=== PATIENT | male | born 1935 | race Caucasian/White ===

== ENCOUNTER → 2017-01-09 | Outpatient (CLI) | payer SELFPAY ==
[2017-01-09 16:32] LABS: Appearance,Urine Clear (Clear); Bilirubin,Urine Negative (Negative); Glucose,Urine (UA) Negative (Negative); Ketones,Urine Negative (Negative); Leukocyte Esterase,Urine Negative (Negative); Nitrite,Urine Negative (Negative); Protein,Urine Negative (Negative); Specific Gravity,Urine 1.011 (1.001-1.035); UA Billing (MACRO vs. MICRO) CHEM; Urobilinogen,Urine <2.0 mg/dL (<2.0)
[2017-01-09 16:42] LABS: INR 1.3 (<1.2); Partial Thromboplastin Time 33.5 sec (22.0-30.0); Prothrombin Time 12.7 sec (9.0-12.0)
[2017-01-09 16:49] LABS: ALT 50 U/L (21-72); AST 47 U/L (17-59); Alkaline Phosphatase 50 U/L (38-126); Anion Gap 9 mmol/L; Blood Urea Nitrogen 22 mg/dL (9-20); Calcium 9.6 mg/dL (8.4-10.2); Carbon Dioxide 28 mmol/L (22-30); Chloride 104 mmol/L (98-107); Glucose 95 mg/dL (74-99); Non-African American GFR(MDRD) >60 (>60 ml/min/1.73 sqM); Potassium 4.5 mmol/L (3.5-5.1); Sodium 141 mmol/L (137-145); Total Bilirubin 0.9 mg/dL (0.2-1.3); Total Protein 7.1 g/dL (6.3-8.2)
== END | disposition home or self-care (01) ==
LOC: LABPAT 15:45
PROVIDERS: ATTEND Orthopaedic Surgery
DX: Z01.812 Encounter for preprocedural laboratory examination (principal)
CPT/HCPCS: 80053; 81003; 85610; 85730; 87070

== ENCOUNTER 2017-01-17 05:56 | Inpatient (IN) | payer SELFPAY ==
[2017-01-13 12:42] VITALS: BMI 22.1
[~2017-01-17 05:56] MED LIST: ACETAMINOPHEN TAB 500 MG TAB PO ONE; DEXAMETHASONE SOD PHOSPHATE 10 MG/ML 1 ML VIAL IV ONE; HYDROmorphone 1 MG/ML 1 ML SYRINGE IVP PRN; LIDOCAINE 1% 20 ML VIAL (10MG/ML) FOR IV START INTRADERMA PRN; MELOXICAM 7.5 MG TAB PO ONE; MIDAZOLAM 2 MG/2 ML VIAL IV PRN; ONDANSETRON 4 MG/2 ML VIAL IVP ONE; SCOPOLAMINE 1.5MG/72HR PATCH TRANSDERM ONE; TRANEXAMIC ACID 1,000 MG in SODIUM CHLORIDE 0.9% 100 ML IVPB ONE; ceFAZolin 2 GM in SODIUM CHLORIDE 0.9% 100 ML IVPB ONE
[2017-01-17] MEDS ORDERED: ROPIVACAINE 246.25 MG, EPINEPHrine 0.5 MG, KETOROLAC 30 MG, cloNIDine HCL/PF 80 MCG, WA... MISCELLANE ONE ×5 (06:02)
[2017-01-17 06:23] VITALS: RESP 16
[2017-01-17] MEDS: LACTATED RINGERS 1,000 ML IV SCH (07:22)
[2017-01-17] MEDS ORDERED: PHENYLEPHRINE-0.9% NACL SYG 1 MG/10 ML SYRINGE ONE (07:23)
[2017-01-17] MEDS ORDERED: MIDAZOLAM 2 MG/2 ML VIAL ONE (07:23)
[2017-01-17] MEDS ORDERED: PROPOFOL 10 MG/ML 20 ML VIAL IV ONE (07:23)
[2017-01-17] MEDS ORDERED: fentaNYL (PF) 50 MCG/ML 2 ML AMP ONE (07:23)
[2017-01-17] MEDS ORDERED: MAGNESIUM HYDROXIDE 2,400 MG/10 ML CUP PO PRN (07:26)
[2017-01-17] MEDS ORDERED: ONDANSETRON 4 MG/2 ML VIAL IVP PRN (07:26)
[2017-01-17] MEDS ORDERED: NALOXONE 0.4 MG/ML 1 ML VIAL IV PRN (07:26)
[2017-01-17] MEDS ORDERED: HYDROmorphone 1 MG/ML 1 ML SYRINGE IVP PRN ×3 (07:26)
[2017-01-17] MEDS ORDERED: HYDROcodone/APAP 5-325MG 1 EACH TAB PO PRN (07:26)
[2017-01-17] MEDS ORDERED: hydrOXYzine PAMOATE 25 MG CAP PO PRN (07:26)
[2017-01-17] MEDS ORDERED: DIAZEPAM 5 MG TAB PO PRN (07:26)
[2017-01-17] MEDS ORDERED: ceFAZolin 3,000 MG in SODIUM CHLORIDE 0.9% IRRIGATIO 3,000 ML IRRIGATION ONE (08:23)
[2017-01-17] MEDS ORDERED: LACTATED RINGERS 1,000 ML IV ONE (08:29)
[2017-01-17] MEDS ORDERED: DABIGATRAN 75 MG CAP PO SCH (09:00)
--- NOTE | 2017-01-17 09:09 | P.OP ---
Date of Procedure: 01/17/17 Preoperative Diagnosis: Severe osteoarthritis of the right hip Postoperative Diagnosis: Severe osteoarthritis of the right hip Procedure(s) Performed: Right total hip arthroplasty with a direct anterior approach Implants: Barrera and nephew Polarstem size 8 standard with a collar Barrera [employer] Nephew R3, 3 hole acetabular shell, 54 mm Barrera [employer] Nephew reflection 6.5 mm cancellus screw, 25 mm 2 Barrera [employer] Nephew R3, XLPE 20 acetabular liner Barrera & Nephew Oxinium femoral head 36 m, -3 All components were press-fit. The articulation is ceramic on polyethylene. Anesthesia: spinal Surgeon: James Whitehead Stone Derrickman And Rigger #1: Isabela Guerra Estimated Blood Loss (ml): 750 (281 mL returned with Cell Saver) Pathology: other (Femoral head) Condition: stable Disposition: PACU Indications for Procedure: After failure of conservative treatment we discussed the surgical and nonsurgical treatment options at length. Patient wishes to proceed with a total hip arthroplasty with a direct anterior approach. Complications specific to this procedure were discussed at length, including but not limited to infection, leg length discrepancy, dislocation, and nerve injury. Patient is aware of all these complications and informed consent was obtained Operative Findings: The operative findings are consistent with severe osteoarthritis of the right hip Description of Procedure: Patient was seen and evaluated in the preoperative area, consent was reviewed, and the surgical site was marked with a skin marker. Patient was then brought to the operating room and given prophylactic antibiotics intravenously. 1 g of Tranexamic acid was also given. A spinal anesthetic was administered by the anesthesia department. The patient was then placed on the Carnegie table with the bony prominences well-padded. The hip area was then prepped and draped in usual sterile fashion. A universal timeout was then performed, which confirmed the patient's name, surgical site, ALLERGIES, and procedure being performed. Next the incision site was located at 1 cm distal and 1 cm lateral to the anterior superior iliac spine. The skin and subcutaneous tissues were sharply incised. Incision was carefully dissected down to the fascia overlying the tensor fascia elpidio muscle. This fascia was then incised in line with the incision. Next, using blunt finger dissection, the tensor fascia elpidio muscle was dissected off its investing fascia. The muscle was then carefully retracted laterally with a cobra retractor over the lateral neck of the femur. Next, the circumflex vessels were identified and cauterized using the AquaMantis device. The anterior hip capsule was then exposed. The capsule was then opened and an inverted T fashion. Cobra retractors were then placed intracapsularly. The proximal femur was then visualized. The femoral neck was then osteotomized appropriate level above the lesser trochanter. Small amount of traction was placed with the Carnegie table. A small wedge of bone was then removed from the remaining femoral head. Next, using a corkscrew femoral head was easily removed from the acetabulum. On gross visual inspection, the femoral head had complete loss of articular cartilage in multiple periarticular osteophytes. Attention was then turned to the acetabulum. the acetabulum was exposed and any remaining labrum was excised. Sequential reaming of the acetabulum was performed using fluoroscopic guidance. When the appropriate size was reached, a trial was then placed. The position and fit of the trial was checked with fluoroscopy. The trial was then removed. Then, using fluoroscopic guidance, the final implant was impacted at 20 of anteversion and 40 of abduction, and fully seated in the acetabulum. 2 screws were then placed in the acetabulum. Again fluoroscopy was used to check position of the screws. Next, the liner was then impacted, with a 20 elevated liner located in the anterior superior quadrant. Component locking was confirmed. Attention was then directed to the femur. With the aid of the Carnegie table, the femur was externally rotated to approximately 130, extended, and abducted under the opposite leg. A side hook was then placed under the proximal femur, and the side hook elevator was used to elevate the proximal femur. Retractors were then placed. A capsular release was performed, as well as a release of the conjoined tendon, which afforded excellent visualization of the proximal femur. Next, a box osteotome was used to lateralize the proximal femur. A binder stripper hand was then used to locate the femoral canal. Sequential broaching was then performed with appropriate size which afforded excellent fixation in the proximal femur. A trial was then placed with appropriate head and neck, and the hip was gently reduced with the aid of the Carnegie table. Fluoroscopy was then used to check position of the components, as well as to ensure equal leg lengths. The hip was then gently dislocated and the trials were then removed. Final implants were then impacted and the hip was again reduced. Final fluoroscopic x-rays confirmed that the components were in anatomic position, as well as equal leg lengths. The hip was also taken through range of motion, and found to be stable. The hip was then copiously irrigated with antibiotic solution with pulsatile lavage. The soft tissues were then injected with a ropivacaine solution, which consisted of 246.25 mg of ropivacaine, 0.5 mg of epinephrine, 30 mg of Toradol, 80 g of clonidine, and 48.45 mL of sterile water, for a total of 100 mL of fluid injected. A second dose of 1 g of Tranexamic acid was also given. the fascia was then closed with 2-0 strata fix suture. The subcutaneous tissue was closed with 3-0 Vicryl. The subcuticular tissue was closed with 3-0 strata fix suture. The skin was then closed with Dermabond tape. The patient was then transferred to the recovery room in stable condition. The market research assistant GWEN Dennis was required due to the complexity of surgery, and the need for skilled surgical coordinator for positioning, draping, exposure, retraction, and closure of the wound.
--- NOTE | 2017-01-17 09:45 | XR ---
Fluoroscopy History: ORIF right hip 10 seconds of fluoroscopic time and 3 films are submited for total hip replacement. Alignment appears to be near-anatomic.
[2017-01-17] MEDS: ceFAZolin 2 GM in SODIUM CHLORIDE 0.9% 100 ML IVPB SCH (16:33)
[2017-01-17] MEDS: SODIUM CHLORIDE 0.9% 1,000 ML IV SCH (16:34)
[2017-01-17] MEDS ORDERED: DABIGATRAN ETEXILATE MESYLATE 110 MG PO SCH (21:00)
[2017-01-17] MEDS: SENNOSIDES-DOCUSATE SODIUM 1 EACH TAB PO SCH (21:35)
[2017-01-17] MEDS: TAMSULOSIN 0.4 MG CAP.ER.24H PO SCH (21:35)
[2017-01-17] MEDS: DABIGATRAN 150 MG CAP PO SCH (21:35)
[2017-01-18] MEDS: SODIUM CHLORIDE 0.9% 1,000 ML IV SCH ×2 (00:18→15:32)
[2017-01-18] MEDS: ceFAZolin 2 GM in SODIUM CHLORIDE 0.9% 100 ML IVPB SCH (00:18)
[2017-01-18] MEDS: LACTATED RINGERS 1,000 ML IV SCH (05:44)
--- NOTE | 2017-01-18 06:40 | CONS ---
CONSULTATION DATE OF CONSULTATION: 01/17/2017 REASON FOR CONSULTATION: Medical management requested by Dr. Whitehead. CONSULTATION: This is a pleasant 82-year-old patient who has got a family doctor out of [facility] [place] [facility]. Chronic stable medical conditions include osteoarthritis, atrial fibrillation for which he is on Pradaxa that has been held, hyperparathyroidism, Waldenstrom macroglobulinemia and gout. The patient has undergone a right total hip arthroplasty. Some pain is present. No nausea or vomiting or chest pain. Sitting up in a chair. Did eat his supper. REVIEW OF SYSTEMS: CONSTITUTIONAL: None. HEENT: None. RESPIRATORY: None. CARDIOVASCULAR: None. GASTROINTESTINAL: None. GENITOURINARY: None. MUSCULOSKELETAL: Pain in different joints. DERMATOLOGICAL: None. HEMATOLOGIC: None. LYMPHATICS: None. PSYCHIATRY: None. NEUROLOGICAL: None. PAST HISTORY: Osteoarthritis, prostate disorder, atrial fibrillation, hyperparathyroidism, Waldenstrom macroglobulinemia, gout. PAST SURGICAL HISTORY: Appendectomy, hernia repair, right and left knee arthroscopics, cataract surgery both eyes. SOCIAL HISTORY: Smoked a half a pack a day for 25 years. Stopped 40 years ago. . 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 HOME MEDICATIONS: 1. CO Q10, 100 mg p.o. daily. 2. Rapaflo 8 mg q.h.s. 3. Avodart 0.5 mg p.o. daily. 4. Pradaxa 110 mg p.o. b.i.d. 5. Vitamin D3. 1000 units p.o. daily. 6. Vitamin C 500 mg p.o. daily. 7. Allopurinol 300 mg p.o. daily. ALLERGIES: None. PHYSICAL EXAMINATION: On examination, temperature 98, pulse 58, respirations 16, blood pressure 112/67, pulse ox 96% on room air. GENERAL APPEARANCE: Average built, sitting up, comfortable. EYES: Pupils equal. Conjunctivae normal. HENT: Oral cavity normal. NECK: JVD not raised. Mass not palpable. RESPIRATORY: Effort normal. Lungs are clear. CARDIOVASCULAR: First and second sounds normal. No edema. ABDOMEN: Soft, nontender. Liver and spleen not palpable. LYMPHATIC: No lymph node palpable in the neck and axillae. PSYCHIATRY: Alert and oriented x3. Mood affect normal. NEUROLOGICAL: Pupils equal. Cranial nerves grossly intact. Power and sensation grossly intact. EXTREMITIES: Dressing over the right hip. INVESTIGATIONS: Blood work on 01/09/17 shows a potassium 4.5, BUN 22, creatinine 0.96. UA negative. ASSESSMENT: 1. Right total hip arthroplasty. 2. Chronic Waldenstrom macroglobulinemia under remission. 3. Chronic gout, on allopurinol. 4. Hyperparathyroidism. 5. Persistent atrial fibrillation, chronically on Pradaxa. 6. Primary osteoarthritis in both the hips. PLAN: Care was discussed with the patient. Pradaxa to be started when okay with Dr. Whitehead. This could be tomorrow morning. Other home medications will be resumed. Care was discussed with the patient. Patient should follow up with his family doctor upon discharge. Thank you, Dr. Whitehead. RITO / EDWARDN: [id number] /
[2017-01-18 06:54] LABS: Basophils % (A) 0 %; CH 32.4; Eosinophils % (A) 0 %; HDW 3.13; HGB 10.7 gm/dL (13.0-17.5); Luc # (Auto) 0.23; Luc % (Auto) 3; Lymphocytes # (A) 0.9 k/uL (1.0-4.8); Lymphocytes % (A) 13 %; MCH 32.1 pg (25.0-35.0); MCHC 33.5 g/dL (31.0-37.0); MCV 95.9 fL (80.0-100.0); Mean Platelet Volume 7.4; Monocytes # (A) 0.7 k/uL (0-1.0); Monocytes % (A) 10 %; Neutrophils # (A) 5.4 k/uL (1.3-7.7); Neutrophils % (A) 74 %; RBC 3.34 m/uL (4.30-5.90); RDW 15.1 % (11.5-15.5); WBC 7.4 k/uL (3.8-10.6); WBC (Perox) 7.54
[2017-01-18] MEDS: ASCORBIC ACID 500 MG TAB PO SCH (09:19)
[2017-01-18] MEDS: DABIGATRAN 150 MG CAP PO SCH ×2 (09:19→21:57)
[2017-01-18] MEDS: ALLOPURINOL 300 MG TAB PO SCH (09:19)
[2017-01-18] MEDS: FINASTERIDE 5 MG TAB PO SCH (09:20)
--- NOTE | 2017-01-18 09:27 | P.DS ---
Providers Date of admission: 01/17/17 05:56 Expected date of discharge: 01/18/17 Attending physician: James Whitehead Consults: 01/17/17 07:26 Consult Physician Routine Consulting Provider: Max Araujo Consult Reason/Comments: medical management Do you want consulting provider notified?: Yes Primary care physician: Stated None - Discharge Diagnosis(es) (1) Primary osteoarthritis of right hip Current Visit: Yes Status: Acute (2) S/P total hip arthroplasty Current Visit: Yes Status: Acute Hospital Course: This is a 82-year-old male with known history of degenerative arthritis of the right hip. The patient presents for evaluation. After discussion and consideration patient elects to proceed with total hip arthroplasty. The patient is seen preoperatively by Dr. Whitehead and cleared for surgery. Patient is admitted to [facility] on 01/17/2017 for total hip arthroplasty. The procedures performed without complication or sequelae. The patient is doing well postoperatively. Labs and vital signs are stable on day of discharge. On day of discharge patient's hip incision is healing well. There is minimal erythema. There is no drainage noted at this time. There is minimal soft tissue swelling to the hip and thigh. Patient has full foot and ankle motion without difficulty or pain. Neurovascular status to the right lower extremity is intact. Patient is discharged home in good condition. Please see med rec for accurate list of home medications. Plan - Discharge Summary New Discharge Prescriptions: New HYDROcodone/APAP 5-325MG [Mancos 5-325] 1 - 2 tab PO Q4-6H PRN #90 tab PRN Reason: Pain Sennosides-Docusate Sodium [Senokot-S] 1 tab PO BID #60 tablet Dabigatran Etexilate Mesylate [Pradaxa] 220 mg PO DAILY #60 capsule No Action Cholecalciferol [Vitamin D3] 1,000 unit PO DAILY Ascorbic Acid [Vitamin C] 500 mg PO DAILY Silodosin [Rapaflo] 8 mg PO HS Dutasteride [Avodart] 0.5 mg PO DAILY Dabigatran Etexilate Mesylate [Pradaxa] 110 mg PO BID Allopurinol [Zyloprim] 300 mg PO DAILY Ubidecarenone [Co Q-10] 100 mg PO DAILY Discharge Medication List Allopurinol [Zyloprim] 300 mg PO DAILY 01/13/17 [History] Ascorbic Acid [Vitamin C] 500 mg PO DAILY 01/13/17 [History] Cholecalciferol [Vitamin D3] 1,000 unit PO DAILY 01/13/17 [History] Dabigatran Etexilate Mesylate [Pradaxa] 110 mg PO BID 01/13/17 [History] Dutasteride [Avodart] 0.5 mg PO DAILY 01/13/17 [History] Silodosin [Rapaflo] 8 mg PO HS 01/13/17 [History] Ubidecarenone [Co Q-10] 100 mg PO DAILY 01/13/17 [History] Dabigatran Etexilate Mesylate [Pradaxa] 220 mg PO DAILY #60 capsule 01/18/17 [Rx ] HYDROcodone/APAP 5-325MG [Mancos 5-325] 1 - 2 tab PO Q4-6H PRN #90 tab 01/18/17 [ Rx] Sennosides-Docusate Sodium [Senokot-S] 1 tab PO BID #60 tablet 01/18/17 [Rx] Follow up Appointment(s)/Referral(s): James Whitehead DO [Doctor of Osteopathic Medicine] - 2 Weeks Activity/Diet/Wound Care/Special Instructions: Weightbearing as tolerated with walker May shower after 2 days if no drainage from the incision Follow-up with [facility] in 2 weeks with any questions or concerns, [phone] Discharge Disposition: HOME WITH HOME HEALTH SERVICES
--- NOTE | 2017-01-18 14:29 | PN ---
PROGRESS NOTE DATE OF SERVICE: 01/18/2017 PRESENTING COMPLAINT: Hip surgery. INTERVAL HISTORY: This is a patient status post right hip surgery, doing well. Some pain is present. No chest pain or short of breath. Did work with therapy, been out of bed. REVIEW OF SYSTEMS: Done for constitutional, cardiovascular, GI, pulmonary, musculoskeletal; relevant findings as above. CURRENT MEDICATIONS: Reviewed. PHYSICAL EXAMINATION: Temperature 98.7 pulse 95, R 16, blood pressure 103/67, pulse ox 100% on room air. GENERAL APPEARANCE: Sitting up in a chair, comfortable. EYES: Pupils equal, conjunctivae normal. NECK: JVD not raised. Mass not palpable. RESPIRATORY: Effort normal. Lungs are clear. CARDIOVASCULAR: First and second sounds normal, no edema. ABDOMEN: Soft, nontender. Liver and spleen not palpable. PSYCHIATRY: Alert and oriented x3. Mood and affect normal. INVESTIGATIONS: White count 7.4, hemoglobin 10.7. ASSESSMENT: 1. Right total knee arthroplasty. 2. Chronic Waldenstrom's macroglobinemia in remission. 3. Chronic gout on allopurinol. 4. Hyperparathyroidism. 5. Persistent atrial fibrillation. Chronically on Pradaxa. 6. Primary osteoarthritis in both the hips including surgery in the right hip. PLAN: Patient to go back on Pradaxa when okay with Orthopedics. Care was discussed with the patient. Questions were answered. Thank you, Dr. Whitehead. RITO / TETO: [id number] /
[2017-01-18] MEDS: HYDROcodone/APAP 5-325MG 1 EACH TAB PO PRN ×2 (15:55→22:03)
[2017-01-18] MEDS: SENNOSIDES-DOCUSATE SODIUM 1 EACH TAB PO SCH (21:56)
[2017-01-18] MEDS: TAMSULOSIN 0.4 MG CAP.ER.24H PO SCH (21:57)
[2017-01-18] MEDS: DIAZEPAM 5 MG TAB PO PRN (22:02)
[2017-01-19] MEDS: HYDROcodone/APAP 5-325MG 1 EACH TAB PO PRN ×2 (06:05→13:47)
[2017-01-19] MEDS: DIAZEPAM 5 MG TAB PO PRN (06:06)
[2017-01-19] MEDS: LACTATED RINGERS 1,000 ML IV SCH (06:54)
[2017-01-19 09:48] VITALS: TEMP 98.3
[2017-01-19] MEDS: ALLOPURINOL 300 MG TAB PO SCH (09:50)
[2017-01-19] MEDS: DABIGATRAN 150 MG CAP PO SCH (09:50)
[2017-01-19] MEDS: ASCORBIC ACID 500 MG TAB PO SCH (09:50)
[2017-01-19] MEDS: FINASTERIDE 5 MG TAB PO SCH (09:50)
[2017-01-19 15:23] VITALS: BP 135/78; PULSE 71
--- NOTE | 2017-01-19 15:58 | P.PN ---
Progress Note - Text DATE OF SERVICE: 01/19/2017 PRESENTING COMPLAINT: Right hip surgery HISTORY OF PRESENT ILLNESS: 82-year-old male who is status post right hip surgery. INTERVAL HISTORY: 01/19/2017: Patient sitting up in a recliner appears comfortable, no acute events overnight , right hip dressing intact. Despite in with physical therapy, tolerating his diet, ambulatory with a walker and assistance. Last BM prior to admission. Cathartics available. REVIEW OF SYSTEMS: Done for constitutional ,cardiovascular, GI, pulmonary, musculoskeletal with relevant findings as above. CURRENT MEDICATIONS [place], allopurinol, PRADAXA, Valium, PHYSICAL EXAM VITAL SIGNS: Temperature 98.3, pulse 84, respirations 18, blood pressure 113/64, oxygen saturation 95% on room air. GENERAL APPEARANCE: Lying in a recliner, appears comfortable. EYES: Pupils equal. Conjunctiva normal. NECK: JVD not raised. Mass not palpable. RESPIRATORY: Respiratory effort normal. Lungs clear to auscultation. CARDIOVASCULAR: First and second sounds normal. No edema. ABDOMEN: Soft. Liver and spleen not palpable. No tenderness. No mass palpable. PSYCHIATRY: Alert and oriented x3. Mood and affect normal. NEUROLOGICAL: Cranial nerves grossly intact. No facial asymmetry. Power and sensation grossly intact INVESTIGATIONS: None new ASSESSMENT: -Right hip arthroplasty -Chronic Waldenstrm's macroglobulinemia in remission. -Chronic alcohol allopurinol. -Hyperparathyroidism. -Persistent atrial fibrillation, chronically on Pradaxa. -Primary posterior arthritis and both the hips including surgery in the right hip. PLAN: Continue current medication and treatment plan, Pradaxa restarted today, patient stable for discharge per orthopedics. CRESTER statement: Patient was seen and examined by nurse practitioner Susanne Allen and all elements of the case discussed with attending Dr. Araujo
[2017-01-19] MEDS: SODIUM CHLORIDE 0.9% 1,000 ML IV SCH (17:11)
--- NOTE | 2017-01-19 18:24 | PN ---
PROGRESS NOTE DATE OF SERVICE: 01/19/2017. ATTENDING NOTE: This patient seen and examined by me. I discussed with my FLEA MARKET SELLER, Ms. Allen. The patient is doing well, sitting up, up and about. No chest pain. Some shortness of breath. PHYSICAL EXAMINATION: On examination, afebrile. Lungs are clear. CARDIOVASCULAR: first and second sounds normal. ASSESSMENT: 1. Right total hip arthroplasty. 2. Other medical conditions stable. PLAN: The patient is medically okay to be discharged. Follow with PCP. MMODL / IJN: [id number] /
== END 2017-01-19 15:10 | disposition home health service (06) | DRG 470 ==
LOC: 2ORMAIN 05:56 → 3SUR 09:29
PROVIDERS: ADMIT Orthopaedic Surgery; ATTEND Orthopaedic Surgery
PROC: 0SR904A Replacement of Right Hip Joint with Ceramic on Polyethylene Synthetic Substitute, Uncemented, Open Approach (ICD-10-PCS; principal; 2017-01-17 07:30)
DX: M16.11 Unilateral primary osteoarthritis, right hip (principal); I48.1 Persistent atrial fibrillation; C88.0 Waldenstrom macroglobulinemia; E21.3 Hyperparathyroidism, unspecified; M1A.9XX0 Chronic gout, unspecified, without tophus (tophi); N42.9 Disorder of prostate, unspecified; Z79.01 Long term (current) use of anticoagulants; Z79.899 Other long term (current) drug therapy; Z98.42 Cataract extraction status, left eye; Z98.41 Cataract extraction status, right eye; Z87.891 Personal history of nicotine dependence; Z96.651 Presence of right artificial knee joint
CPT/HCPCS: 73501; 85025; 86850; 86900; 86901; 88300